=== PATIENT | male | born 1970 | race Caucasian/White ===

== ENCOUNTER 2022-01-01 13:08 | Emergency (ER) | payer MEDICARE ==
[~2022-01-01] VITALS: Ht 175.3 cm; Wt 100.7 kg
[~2022-01-01 13:08] MED LIST: ACETAMINOPHEN500 MG PO; AUGMENTIN 875-1 EACH PO; FARXIGA5 MG PO; GUAIFENESIN-CO118 ML PO; LISINOPRIL20 MG PO; MINIMED RESERV1 EACH MISC; MULTI VITAMIN1 EACH PO; OMEPRAZOLE20 MG PO; SIMVASTATIN40 MG PO; SYNTHROID75 MCG PO; ZOFRAN ODT4 MG PO
[2022-01-01] MEDS ORDERED: COZAAR100 MG PO (13:22)
[2022-01-01] MEDS ORDERED: HUMALOG100 UNITS/ IV (13:22)
[2022-01-01] MEDS ORDERED: ACYCLOVIR400 MG PO (13:22)
--- NOTE | 2022-01-01 18:45 | EKG ---
[facility] [address] [facility] [address] [place] [address] Signed Normal sinus rhythm Left posterior fascicular block Septal infarct , age undetermined Abnormal ECG No previous ECGs available Confirmed by TIFFANI PATEL MD ([id number] on 01/01/2022 6:45:04 PM Electronically Signed By: TIFFANI PATEL MD 01/01/22 1845 PATIENT NAME: TOM ESPINAL RITA Electrocardiogram DATE OF : 74 PHYSICIAN: TIFFANI PATEL MD REPORT #: [id number] REPORT IS CONFIDENTIAL AND NOT TO BE RELEASED WITHOUT AUTHORIZATION
== END 2022-01-01 16:11 | disposition home or self-care (01) ==
LOC: ED 13:08
DX: R07.2 Precordial pain (principal); I10 Essential (primary) hypertension; E10.9 Type 1 diabetes mellitus without complications; E78.00 Pure hypercholesterolemia, unspecified; Z79.899 Other long term (current) drug therapy; Z79.4 Long term (current) use of insulin
CPT/HCPCS: 36415; 71045; 80053; 84484; 85025; 93005; 93010; 99285-25; A9270